=== PATIENT | female | born 2000 | race Caucasian/White ===

== ENCOUNTER 2024-02-12 09:50 | Emergency (ER) | payer SELFPAY ==
[2024-02-12 10:02] VITALS: BP 138/66; PULSE 67; RESP 20; TEMP 37; O2SAT 98
--- NOTE | 2024-02-12 10:40 | ED.EAR ---
HPI - Ear Problem General Chief complaint: Ear Stated complaint: Right ear Source: patient Mode of arrival: ambulatory Limitations: no limitations History of Present Illness HPI Narrative: 23 y/o female presented for c/o right ear pain and bloody drainage x3 days. Reports recent nasal congestion and drainage. denies tinnitus, dizziness, nausea, vomiting. History of ear infections and surgeries, reports tubes in place and a bone anchored hearing aide which she does not wear. Has not f/u with ENT after they relocated. MD Complaint: ear pain Related Data Allergies Allergy/AdvReac Type Severity Reaction Status Date / Time ibuprofen [From Advil] Allergy Intermediate Hives Verified 02/12/24 10:14 naproxen Allergy Intermediate Hives Verified 02/12/24 10:14 Review of Systems Review of Systems: CONSTITUTIONAL: Denies malaise, chills, or fever. EYES: Denies visual changes, redness, or discharge. ENT: Denies rhinorrhea, congestion, sinus pain, and sore throat. Reports ear pain CARDIOVASCULAR: Denies chest pain, palpitations, or edema. RESPIRATORY: Denies cough or dyspnea. SKIN: Denies rash or itching. NEUROLOGIC: Denies headache. All systems reviewed & are unremarkable except as noted in HPI and below PMFSH Comments At time of signature, agree with nursing past medical, surgical, social and family history. There is no relevant family history pertinent to the presenting complaint Exam Narrative: GENERAL: Well-appearing ENT: Nares clear. Mucous membranes moist. left TM pearly pettit with dull light reflex; right TM erythematous, bulging and intact; canal also swollen and erythematous, no drainage no tragal tenderness. Oropharynx not erythematous without lesions. Tonsils not enlarged and without exudate, no drooling, no hoarseness, no trismus, uvula midline. CHEST: Clear to auscultation, breath sounds equal. No wheezing, rhonchi, rales, or stridor. No respiratory distress, speaks in full sentences. HEART: Regular rate and rhythm. No murmur heard. SKIN: Warm, dry, no rash. NEURO: Alert and oriented x3. PSYCH: Normal mood and affect Course Course Emergency Course: Patient is aware of diagnosis, understands and agrees to treatment plan. Anticipatory guidance given. Patient agrees to follow-up as directed and is aware of reasons to seek care at the emergency department. Portions of this record may have been created with voice recognition software Level of Care: Express Care Visit Vital Signs Vital signs: Vital Signs Temperature 98.6 F 02/12/24 10:02 Pulse Rate 67 02/12/24 10:02 Respiratory Rate 20 02/12/24 10:02 Blood Pressure 138/66 02/12/24 10:02 Pulse Oximetry 98 02/12/24 10:02 Oxygen Delivery Room Air 02/12/24 10:02 Temperature 98.6 F 02/12/24 10:02 Pulse Rate 67 02/12/24 10:02 Respiratory Rate 20 02/12/24 10:02 Blood Pressure 138/66 02/12/24 10:02 Pulse Oximetry 98 02/12/24 10:02 Oxygen Delivery Room Air 02/12/24 10:02 Reviewed Medical Decision Making MDM Narrative Medical decision making narrative: Discussed physical exam findings c/w otitis externa, will treat for AOM as the canal is not fully visualized and no apparent drainage is noted in the canal. Advised supportive measures and signs/symptoms to go to the ER. Patient is appropriate for outpatient treatment and follow-up. Differential Diagnosis Differential Diagnosis: Coronavirus, strep pharyngitis, allergic rhinitis, upper respiratory tract infection, sinusitis, rhinosinusitis, nasopharyngitis, viral pharyngitis, otitis media, otitis externa, eustachian tube dysfunction, foreign body, cerumen impaction. Vital Signs Vital Signs: Vital Signs Temperature 98.6 F 02/12/24 10:02 Pulse Rate 67 02/12/24 10:02 Respiratory Rate 20 02/12/24 10:02 Blood Pressure 138/66 02/12/24 10:02 Pulse Oximetry 98 02/12/24 10:02 Oxygen Delivery Room Air 02/12/24 10:02 Temperature 98.6 F 02/12/24
== END 2024-02-12 10:50 | disposition home or self-care (01) ==
PROVIDERS: Emergency Provider Nurse Practitioner Family
DX: H60.91 Unspecified otitis externa, right ear (principal)
CPT/HCPCS: 99213; G0463

== ENCOUNTER 2024-07-01 09:16 | Emergency (ER) | payer SELFPAY ==
[2024-07-01 09:24] VITALS: BP 119/67; PULSE 65; RESP 20; TEMP 36.4; O2SAT 100
--- NOTE | 2024-07-01 10:06 | ED.URI ---
HPI - URI/Sore Throat General Chief Complaint: Upper Respiratory Infection Stated Complaint: fever/dizzy Time Seen by Provider: 07/01/24 10:06 Source: patient, RN notes reviewed and old records reviewed Mode of arrival: ambulatory Limitations: no limitations History of Present Illness HPI Narrative: 23 year old female who presents to [facility] care with complaints of left ear drainage which is brownish in color, face is flushed , headache today and reports feelings of dizziness intermittently for months. Patient reports that she has had previous surgery to her right ear 3 times and presently has ear tube to her left ear. Patient denies any body aches no fever is noted in clinic, denies any cough or any sore throat. Patient states she feels awful.She has not taken any OTC medication for her discomfort. MD elicited complaint: other (headache, brown drainage right ear, face flushed, ) Pertinent past history: tympanostony tubes and other (surgery 3 times to right ear) Onset (ago): day(s) (today) Pain scale (0-10): 5 Able to tolerate fluids by mouth: Yes Treatments prior to arrival: none Related Data Allergies Allergy/AdvReac Type Severity Reaction Status Date / Time ibuprofen (From Advil) Allergy Intermediate Hives Verified 07/01/24 09:50 naproxen Allergy Intermediate Hives Verified 07/01/24 09:50 Review of Systems Review of Systems: CONSTITUTIONAL: Reports malaise, chills, sweats, no known fever. EYES: Denies visual changes, redness, or discharge. ENT: Reports no rhinorrhea, congestion, no sinus pain, left otalgia and no sore throat. CARDIOVASCULAR: Denies chest pain, palpitations, or edema. RESPIRATORY: Reports no cough.? Denies dyspnea. GASTROINTESTINAL: Denies abdominal pain, nausea, vomiting, diarrhea SKIN: Denies rash, states itching left ear MUSCULOSKELETAL: Denies myalgia. NEUROLOGIC: Reports headache. All systems reviewed & are unremarkable except as noted in HPI and below PMFSH Surgical History Surgical History (Updated 07/02/24 @ 10:30 by Margot Barry NP) History of ear surgery right ear X3 has bone anchored hearing aid History of placement of ear tubes Social History Social History Smoking status: Current every day smoker Tobacco type: e-cigarettes/vaping Alcohol intake: unknown Substance use: unknown Living arrangements: with family Gender identity (if verbalized by the patient): Female Comments At time of signature, agree with nursing past medical, surgical, social and family history. There is no relevant family history pertinent to the presenting complaint Exam Narrative: GENERAL:Ill-appearing, well-nourished, and in no acute distress. HEAD: Normocephalic EYES: PERRLA, conjunctivae clear no nystagmus ENT: Nares clear, turbinates edematous and erythematous, clear discharge. Mucous membranes moist.Right TM pearly pettit with dull light reflex Left TM red with ear tube in place brownish discharge noted ; no tragal tenderness. Oropharynx erythematous without lesions. Tonsils not enlarged and without exudate, no drooling, no hoarseness, no trismus, uvula midline.scant post nasal drinage NECK: Supple. No lymphadenopathy CHEST: Clear to auscultation, breath sounds equal. No wheezing, rhonchi, rales, or stridor. No respiratory distress, speaks in full sentences.no cough noted SAO2 100% on room air. HEART: Regular rate and rhythm. No murmur heard. SKIN: Warm, dry, no rash. NEURO: Alert and oriented x3. reports intermittent dizziness for months, gait steady cranial nerves intact with no deficit. PSYCH: Normal mood and affect Course Course Emergency Course: Patient is aware of diagnosis, understands and agrees to treatment plan.? Anticipatory guidance given.? Patient agrees to follow-up as directed and is aware of reasons to seek care at the emergency department. Portions of this record may have been created with voice recognition software Level of Care: Express Care Visit Vital Signs Vital signs: Vital Signs Temperature 36.4 C L 07/01/24 09:24 Pulse Rate 65 07/01/24 09:24 Respiratory Rate 20 07/01/24 09:24 Blood Pressure 119/67 07/01/24 09:24 Pulse Oximetry 100 07/01/24 09:24 Oxygen Delivery Room Air 07/01/24 09:24 Temperature 36.4 C L 07/01/24 09:24 Pulse Rate 65 07/01/24 09:24 Respiratory Rate 20 07/01/24 09:24 Blood Pressure 119/67 07/01/24 09:24 Pulse Oximetry 100 07/01/24 09:24 Oxygen Delivery Room Air 07/01/24 09:24 Reviewed MDM - URI/Sore Throat MDM Narrative Medical decision making narrative: Differential diagnosis considered: Diaz virus, strep pharyngitis, allergic rhinitis, upper respiratory tract infection, sinusitis, rhinosinusitis, nasopharyngitis. viral pharyngitis, otitis media, otitis externa, pneumonia, bronchitis, viral cough syndrome, viral syndrome, and influenza.? Exam findings show no acute concerns or changes; patient is non-toxic appearing and is in no distress.? Patient is appropriate for outpatient treatment and follow-up. Differential Diagnosis Differential diagnosis: Likely upper respiratory infection, otitis media, viral infection, influenza and other (COVID, headache, intermittent dizziness.) Medical Records Attestation: I reviewed the patient's medical records. Lab Data Attestation: I reviewed the patient's lab results. Lab results narrative: Influenza A negative, Influenza B negative, COVID antigen negative Labs: Lab Results 07/01/24 Range/Units 10:10 POC Influenza A Ag Negative (Negative) POC Influenza B Ag Negative (Negative) POC SARS CoV-2 Ag Negative (Negative) reviewed Critical Care Time Critical Care Time Critical Care Time: No Discharge Plan Discharge Clinical Impression: Acute left otitis media Patient Disposition: Home, Self-Care Condition: Stable Instructions: Antibiotic Form, Ear Infection (AC) Additional Instructions: Increase fluids especially juices and water [id number] cough and cold medicine of your choice for your symptoms Tylenol or ibuprofen for any fever pain Ear drops to left ear as prescribed heat to the face 20-30 minutes 4-6 times a day for pain Salt water gargles, throat lozenges or throat sprays as desired If your symptoms persist, change or worsen significantly before you can contact your personal physician then please, without delay, go to the emergency department for further evaluation. Follow-up with PCP in 7-10 days or sooner if needed Patient Language: Mohawk Prescriptions: New ofloxacin 0.3 % drops 5 drp LEFT EAR BID 7 Days Qty: 10 0RF Follow-up/Referrals: PHYSICIAN,STACKER OPERATOR [Primary Care Provider] - Stand Alone Forms: Work/School Release IP Time of Disposition: 10:38 Quality Elo Coma Scale Eyes: Open Verbal: Oriented and Alert Motor: Follows Commands Elo Coma Total Score: 15
[2024-07-01 10:37] LABS: EDCOVIDSCREEN Negative (Negative); EDINFLUASCREEN Negative (Negative); EDINFLUBSCREEN Negative (Negative)
== END 2024-07-01 10:42 | disposition home or self-care (01) ==
PROVIDERS: Emergency Provider Registered Nurse
DX: H66.92 Otitis media, unspecified, left ear (principal); F17.290 Nicotine dependence, other tobacco product, uncomplicated; Z20.822 Contact with and (suspected) exposure to COVID-19
CPT/HCPCS: 87426; 87804; 99213; G0463

== ENCOUNTER 2024-12-02 11:35 | Emergency (ER) | payer SELFPAY ==
[2024-12-02 11:39] VITALS: BP 147/84; PULSE 84; RESP 20; TEMP 36.7; O2SAT 98
--- NOTE | 2024-12-02 11:46 | ED.EAR ---
HPI - Ear Problem General Chief complaint: Ear Stated complaint: left ear Time Seen by Provider: 12/02/24 11:46 Source: patient Mode of arrival: ambulatory Limitations: no limitations History of Present Illness HPI Narrative: 24 y/o female with hx bilateral ear infections and right deafness, presented for c/o persistent left ear pain. Pt Has been going to the ER for this complaint many times she says, and completed an antibiotic about 4 days ago 'that starts with a T.' Also taking antibiotic drops. Pt also saw an Online doctor for work note but work will not accept it, so she needs a work note excusing her for 2 days ago. Denies tinnitus, dizziness, ear drainage, nasal congestion, n/v/d/f/c. Taking tylenol. MD Complaint: ear pain Related Data Allergies Allergy/AdvReac Type Severity Reaction Status Date / Time ibuprofen (From Advil) Allergy Intermediate Hives Verified 12/02/24 11:44 naproxen Allergy Intermediate Hives Verified 12/02/24 11:44 Review of Systems Review of Systems: CONSTITUTIONAL: Denies malaise, chills, or fever. EYES: Denies visual changes, redness, or discharge. ENT: Denies rhinorrhea, congestion, sinus pain, and sore throat. Reports ear pain CARDIOVASCULAR: Denies chest pain, palpitations, or edema. RESPIRATORY: Denies cough or dyspnea. GASTROINTESTINAL: Denies abdominal pain, nausea, vomiting, diarrhea SKIN: Denies rash or itching. MUSCULOSKELETAL: Denies myalgia. NEUROLOGIC: Denies headache. All systems reviewed & are unremarkable except as noted in HPI and below PMFSH Surgical History Surgical History (Updated 07/02/24 @ 10:30 by Margot Barry NP) History of ear surgery right ear X3 has bone anchored hearing aid History of placement of ear tubes Social History Social History Smoking status: Current every day smoker Tobacco type: e-cigarettes/vaping Alcohol intake: unknown Substance use: unknown Living arrangements: with family Gender identity (if verbalized by the patient): Female Comments At time of signature, agree with nursing past medical, surgical, social and family history. There is no relevant family history pertinent to the presenting complaint Exam Narrative: GENERAL: Well-appearing HEAD: Normocephalic EYES: PERRLA, conjunctivae clear ENT: Nares clear. Mucous membranes moist. Left TM erythematous, purulent effusion, tube in place; canal not erythematous, no drainage, no tragal tenderness. Right TM with surgical changes. No erythema or canal swelling or drainage. NECK: Supple. No lymphadenopathy CHEST: Clear to auscultation, breath sounds equal. HEART: Regular rate and rhythm. No murmur heard. SKIN: Warm, dry, no rash. NEURO: Alert and oriented x3. PSYCH: Normal mood and affect Course Course Emergency Course: Patient is aware of diagnosis, understands and agrees to treatment plan. Anticipatory guidance given. Patient agrees to follow-up as directed and is aware of reasons to seek care at the emergency department. Portions of this record may have been created with voice recognition software Level of Care: Express Care Visit Vital Signs Vital signs: Vital Signs Temperature 98.0 F 12/02/24 11:39 Pulse Rate 84 12/02/24 11:39 Respiratory Rate 20 12/02/24 11:39 Blood Pressure 147/84 H 12/02/24 11:39 Pulse Oximetry 98 12/02/24 11:39 Oxygen Delivery Room Air 12/02/24 11:39 Temperature 98.0 F 12/02/24 11:39 Pulse Rate 84 12/02/24 11:39 Respiratory Rate 20 12/02/24 11:39 Blood Pressure 147/84 H 12/02/24 11:39 Pulse Oximetry 98 12/02/24 11:39 Oxygen Delivery Room Air 12/02/24 11:39 Reviewed Medical Decision Making MDM Narrative Medical decision making narrative: Discussed physical exam findings consistent with left otitis media. Advised supportive measures and signs/symptoms to go to the ER. Patient is appropriate for outpatient treatment and follow-up. Differential Diagnosis Differential Diagnosis: Coronavirus, strep pharyngitis, allergic rhinitis, upper respiratory tract infection, sinusitis, rhinosinusitis, nasopharyngitis, viral pharyngitis, otitis media, otitis externa, eustachian tube dysfunction, foreign body, cerumen impaction. Vital Signs Vital Signs: Vital Signs Temperature 98.0 F 12/02/24 11:39 Pulse Rate 84 12/02/24 11:39 Respiratory Rate 20 12/02/24 11:39 Blood Pressure 147/84 H 12/02/24 11:39 Pulse Oximetry 98 12/02/24 11:39 Oxygen Delivery Room Air 12/02/24 11:39 Temperature 98.0 F 12/02/24 11:39 Pulse Rate 84 12/02/24 11:39 Respiratory Rate 20 12/02/24 11:39 Blood Pressure 147/84 H 12/02/24 11:39 Pulse Oximetry 98 12/02/24 11:39 Oxygen Delivery Room Air 12/02/24 11:39 Discharge Plan Discharge Clinical Impression: Otitis media Patient Disposition: Home Condition: Stable Instructions: Antibiotic Form, Ear Infection (ED) Additional Instructions: Take antibiotics as directed. Recommend antihistamine such as Benadryl, Zyrtec or Danielle for sinus congestion Flonase nasal spray, 1 spray in each nostril once daily until symptoms improve Symptomatic treatment includes: rest, fluids, and increase humidity of the air at home. Tylenol 1000mg every 8 hours as needed to reduce fever, pain Please schedule a follow-up visit with your personal physician and ENT; call to schedule an appointment. If your symptoms persist, change or worsen significantly, go to the emergency department for further evaluation. Patient Language: Malay Prescriptions: New cefdinir 300 mg capsule 300 mg PO Q12H Qty: 14 0RF Follow-up/Referrals: PHYSICIAN,MAINTENANCE WORKER HOUSE TRAILER [Primary Care Provider] - Stand Alone Forms: Work/School Release IP Time of Disposition: 12:00
--- OUTSIDE RECORDS SUMMARY | 2024-12-02 11:57 | XMS_ITS | Clinical Summary ---
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 12 Tablet 1 Active ofloxacin (FLOXIN) 0.3 % Solution Place 5 Drops in affected ear(s) 2 times daily. 10 mL 5 Active amoxicillin-cla vulanate (AUGMENTIN) 875-125 MG Tablet Take 1 Tablet by mouth 2 times daily for 10 days. 20 Tablet 5 12/01/19 25 traMADol (ULTRAM) 50 MG TabletIndicatio ns:Otitis media Take 1 Tablet by mouth every 6 hours as needed for Moderate or more severe pain for up to 3 days. 10 Tablet 5 11/24/19 25 Encounters Date Type Department Care Team Description 11/20/2024 4:01 PM CDT - 11/20/2024 5:19 PM CDT Emergency [facility] Emergency [address] [place] [address] Patty Church APRN, SILO MAN Otitis media Discharge Disposition: Discharged to home or Selfcare 11/20/2024 Travel 09/19/2024 10:39 AM CDT - 09/19/2024 11:46 AM CDT Emergency [facility] Emergency [address] [facility] [place] [address] Ilan Spaulding, PAC Otitis media Discharge Disposition: Discharged to home or Selfcare 09/19/2024 Travel from Last 3 Months Social History Tobacco Use Types Packs/Day Years Used Date Smoking Tobacco: Never Smokeless Tobacco: Never Alcohol Use Standard Drinks/Week Comments Never 0 (1 standard drink = 0.6 oz pur e alcohol) Comments No Sex and Gender Information Value Date Recorded Sex Assigned at Not on file Legal Sex Female 11:00 PM CDT Gender Identity Not on file Sexual Orientation Not on file Last Filed Vital Signs Vital Sign Reading Time Taken Comments Blood Pressure 158/77 11/20/2024 5:17 PM CDT Pulse 74 11/20/2024 5:17 PM CDT Temperature 36.4 C (97.6 F) 11/20/2024 5:17 PM CDT Respiratory Rate 14 11/20/2024 5:17 PM CDT Oxygen Saturation 99% 11/20/2024 5:17 PM CDT Inhaled Oxygen Concentration - - Weight 162.4 kg (358 lb) 11/20/2024 3:21 PM CDT Height 185.4 cm (6' 1) 11/20/2024 3:21 PM CDT Body Mass Index 47.23 11/20/2024 3:21 PM CDT Plan of Treatment Health Maintenance Due Date Last Done Comments Hepatitis C Virus (HCV) Screening 2001 Meningococcal B Immunization (1 of 2 - Standard) 08/22/2017 Pap Smear 08/22/2022 SARS-COV-2 Immunization ( - season) 2023 Influenza Immunization (#1) 2024 01/21/2014, 0 01/20/2011 Respiratory Syncytial Virus (RSV) Immunization (Adult) (1 - 1-dose 75+ series) 08/22/2076 Hepatitis B Immunization Completed 003, 02/28/2002, 2001, Additional history exists DTaP/Tdap/Td Immunization Discontinued 2012, 12/11/2006, 01/23/2003, Additional history exists Meningococcal Immunization (ACWY) Aged Out 02/12/2013 No longer eligible based on patient's age to complete this topic TdaP Immunization Completed 02/12/2013 Human Papillomavirus (HPV) Immunization Completed 01/21/2014, 02/12/2013 Pneumococcal Immunization Combined Aged Out No longer eligible based on patient's age to complete this topic Rotavirus Immunization Aged Out No lo nger eligible based on patient's age to complete this topic Care Teams 7Th Grade Social Studies Teacher Relationship Specialty Start Date End Date Provider, None [place] PCP - General 10/14/20
--- OUTSIDE RECORDS SUMMARY | 2024-12-02 11:57 | XMS_ITS | Patient Health Record ---
Author Organization [facility] Address [address] [place] [address] Care Team Providers Care Trapper Bird Name Role Phone KarlTalib Primary Care Provider Reason For Referral No Information Medications Medication SIG (Take, Route, Frequency, Duration) Notes Start Date End Date Status Escitalopram Oxalate 20 MG 1 tablet Oral ly Once a day, in am; Duration: 30 days 09/20/2020 Active Social History Sex Assigned At : Social History Observation Description Sex Assigned At Female Problems Problem Type SNOMED Code ICD Code Onset Dates Problem Status W/U Status Risk Notes Problem Schizoaffective disorder, depressive type (12504497) Schizoaffective disorder, depressive type (F25.1) Active confirmed Problem Generalized anxiety disorder (17427483) Generalized anxiety disorder (F41.1) Active confirmed Problem Post-traumatic stress disorder, unspecified (F43.10) Active confirmed Plan Of Treatment No Information Insurance Providers Payer Name Payer Address Payer Phone Subscriber Number Group Number Insured Name Patient Relationship to Insured Coverage Start Date Coverage End Date [employer] [address] [place] [address] [id number] Vanessa Flores Self - patient is the insured 1 [employer] [address] [place] [address] [id number] Vanessa Flores Self - patient is the insured 1 Medical (General) History Surgical History Surgery Date(Month/Year)
== END 2024-12-02 12:04 | disposition home or self-care (01) ==
PROVIDERS: Emergency Provider Nurse Practitioner Family
DX: H66.92 Otitis media, unspecified, left ear (principal); F17.290 Nicotine dependence, other tobacco product, uncomplicated
CPT/HCPCS: 99213; G0463